=== PATIENT | male | born 1960 | race Caucasian/White ===

== ENCOUNTER 2016-10-18 12:03 | Inpatient (IN) | payer OTHER ==
--- NOTE | 2016-10-19 15:34 | NUR ---
1522 PATIENT GONE TO OR FOR PROCEDURE VIA HOSPITAL BED WITH OR STAFF
--- NOTE | 2016-10-19 18:44 | NUR ---
PATIENT RETURNED TO ROOM 308 VIA HOSPITAL BED FROM OR A LITTLE AFTER 6 PM THIS EVENING. PATIENT ALERT AND ORIENTED X 3. DENIES PAIN. LEFT RADIAL PULSES 2+, ARM WRAPPED WITH JONATHAN WRAP AND DRESSING UNDERNEATH. PATIENT CAN WIGGLE FINGERS AND EXTREMITY IS WARM. VITALS STABLE
[2016-10-21] MEDS ORDERED: IBUPROFEN800 MG PO (13:40)
[2016-10-21] MEDS ORDERED: NORCO 5-325 TA1 EACH PO (13:41)
[2016-10-21] MEDS ORDERED: BACTRIM DS TAB1 EACH PO (13:41)
[2016-10-21] MEDS ORDERED: ACETAMINOPHEN325 MG PO (13:41)
[2016-10-21] MEDS ORDERED: OMEPRAZOLE20 MG PO (13:41)
== END 2016-10-21 13:39 | disposition home or self-care (01) | DRG 549 ==
LOC: MED 12:03
PROVIDERS: ADMIT Internal Medicine
PROC: 0R9M0ZX Drainage of Left Elbow Joint, Open Approach, Diagnostic (ICD-10-PCS; principal; 2016-10-19)
DX: M00.822 Arthritis due to other bacteria, left elbow (principal); L03.114 Cellulitis of left upper limb; R73.9 Hyperglycemia, unspecified; F17.210 Nicotine dependence, cigarettes, uncomplicated; K21.9 Gastro-esophageal reflux disease without esophagitis; Z86.010 Personal history of colon polyps; Z79.899 Other long term (current) drug therapy; Z82.5 Family history of asthma and other chronic lower respiratory diseases; Z83.3 Family history of diabetes mellitus; Z86.14 Personal history of Methicillin resistant Staphylococcus aureus infection
CPT/HCPCS: J1650; J1885; J2704; J2765; J3370; J7050